=== PATIENT | male | born 1960 | race African-American/Black ===

== ENCOUNTER 2019-07-03 18:44 | Emergency (ER) | payer SELFPAY ==
[~2019-07-03] VITALS: Ht 172.7 cm; Wt 83.9 kg
--- NOTE | 2019-07-03 18:45 | NUR ---
ED Nurse Note: Patient walked into ED c/o right upper abdominal pain that has been an ongoing issue for 3 weeks now, rates his pain a 8/10 pain. patient denies any nausea, vomiting, diarrhea, states her pain as a pressure like pain. patient is alert and oriented x4, ambulatory with a steady gait, VSS
[2019-07-03 19:05] VITALS: BP 126/77
--- NOTE | 2019-07-03 19:17 | Emergency Room Report ---
History of Present Illness General Chief Complaint: Abdominal Pain Source: Patient Present Illness HPI 58 YO male presents to the ED c/o 05/27 in severity epigastric and RUQ abdominal pain. Pt. reports has been going on several times a day for almost 3 weeks now. Pt. reports eating exacerbates his symptoms. He reports he also has symptoms when on an empty stomach. he reports nausea. Denies vomiting. He reports intermittent diarrhea. He denies blood in the stool. He reports sometimes his stool is dark in color. Denies CP, SOB, Cough, Fevers or chills. Denies recent travel or ill contacts with similar symptoms. Pt. w. Hx of GERD and he does not take medications. Denies dysuria or hematuria. Pt. denies having any relieving factors. Pt. reports he has symptoms at least 3 times per day. He denies NSAID use. He reports he is an avid coffee drinker. Allergies: Coded Allergies: No Known Allergies (Unverified , 07/03/19) Patient History Past Medical History: see triage record Past Surgical History: none Pertinent Family History: none Immunizations: UTD Reviewed Nursing Documentation: PMH: Agreed; PSxH: Agreed Nursing Documentation-PMH Past Medical History: No Stated History Review of Systems All Other Systems: negative except mentioned in HPI Physical Exam Vital Signs Date Time Temp Pulse Resp B/P (MAP) Pulse Ox O2 Delivery O2 Flow Rate FiO2 07/03/19 18:59 98.6 65 18 126/77 (93) 98 Room Air Sp02 EP Interpretation: reviewed, normal General Appearance: no apparent distress, alert, GCS 15, non-toxic Head: normocephalic, atraumatic Eyes: bilateral eye normal inspection, bilateral eye PERRL ENT: hearing grossly normal, normal voice Neck: full range of motion Respiratory: chest non-tender, lungs clear, normal breath sounds, no respiratory distress, no wheezing, speaking full sentences Cardiovascular #1: regular rate, rhythm Gastrointestinal: normal bowel sounds, non tender, soft, non-distended, no guarding, tenderness - midepigastric TTP and RUQ ttp, NO Tenderness in other quadrants, no rebound. Rectal: deferred Genitourinary: normal inspection, no CVA tenderness Musculoskeletal: gait/station normal, normal range of motion, non-tender Neurologic: alert, oriented x3, responsive, motor strength/tone normal, sensory intact, speech normal, grossly normal Psychiatric: judgement/insight normal Skin: normal color, normal inspection, well hydrated Medical Decision Making PA Attestation Dr. North is my supervising Physician whom patient management has been discussed with. Diagnostic Impression: Primary Impression: Abdominal pain Qualified Codes: R10.13 - Epigastric pain Additional Impressions: History of gastroesophageal reflux (GERD) Gastritis Qualified Codes: K29.70 - Gastritis, unspecified, without bleeding ER Course 58 YO male presents to the ED c/o 05/27 in severity epigastric and RUQ abdominal pain. Pt. reports has been going on several times a day for almost 3 weeks now. Pt. reports eating exacerbates his symptoms. He reports he also has symptoms when on an empty stomach. he reports nausea. Denies vomiting. He reports intermittent diarrhea. He denies blood in the stool. He reports sometimes his stool is dark in color. Denies CP, SOB, Cough, Fevers or chills. Denies recent travel or ill contacts with similar symptoms. Pt. w. Hx of GERD and he does not take medications. Denies dysuria or hematuria. Pt. denies having any relieving factors. Pt. reports he has symptoms at least 3 times per day. He denies NSAID use. He reports he is an avid coffee drinker. Ddx considered but are not limited to Diverticulitis, acute appendicitis, diarrhea,UC, PUD, GE, pancreatitis, gallstones Vital signs: are WNL, pt. is afebrile H&PE are most consistent with gastritis secondary to uncontrolled GERD.-- Pt. NAD, non-toxic in appearance. ORDERS: CBC, CMP, lipase, UA-- All WNL no evidence of acute blood loss. ED INTERVENTIONS: -- 1000NS, --Protonix PO -Mylanta PO -Lidocaine Viscous PO Pt. reports his symptoms have improved. He states he does not have a PCP and is asking for referral information. -I do not identify an emergent condition at this time. With current presentation , pt. is stable for close outpatient follow up and conservative treatment. D/ w pt. to return promptly to ED with worsening or new symptoms.- Pt. verbalizes' understanding and agreement with proposed treatment plan.proposed treatment plan. DISCHARGE: At this time pt. is stable for d/c to home. Will provide printed patient care instructions, and any necessary prescriptions. Care plan and follow up instructions have been discussed with the patient prior to discharge. Labs Test 07/03/19 19:40 White Blood Count 4.2 K/UL (4.8-10.8) Red Blood Count 4.68 M/UL (4.70-6.10) Hemoglobin 14.6 G/DL (14.2-18.0) Hematocrit 43.0 % (42.0-52.0) Mean Corpuscular Volume 92 FL (80-99) Mean Corpuscular Hemoglobin 31.2 PG (27.0-31.0) Mean Corpuscular Hemoglobin Concent 33.9 G/DL (32.0-36.0) Red Cell Distribution Width 10.6 % (11.6-14.8) Platelet Count 194 K/UL (150-450) Mean Platelet Volume 8.1 FL (6.5-10.1) Neutrophils (%) (Auto) 37.4 % (45.0-75.0) Lymphocytes (%) (Auto) 42.9 % (20.0-45.0) Monocytes (%) (Auto) 11.4 % (1.0-10.0) Eosinophils (%) (Auto) 6.2 % (0.0-3.0) Basophils (%) (Auto) 2.1 % (0.0-2.0) Urine Color Yellow Urine Appearance Clear Urine pH 5 (4.5-8.0) Urine Specific [place]anna 1.020 (1.005-1.035) Urine Protein 1+ (NEGATIVE) Urine Glucose (UA) Negative (NEGATIVE) Urine Ketones 1+ (NEGATIVE) Urine Blood Negative (NEGATIVE) Urine Nitrite Negative (NEGATIVE) Urine Bilirubin Negative (NEGATIVE) Urine Urobilinogen Normal MG/DL (0.0-1.0) Urine Leukocyte Esterase Negative (NEGATIVE) Urine RBC 0-2 /HPF (0 - 0) Urine WBC 0-2 /HPF (0 - 0) Urine Squamous Epithelial Cells None /LPF (NONE/OCC) Urine Bacteria None /HPF (NONE) Urine Mucus Moderate /LPF (NONE/OCC) Sodium Level 141 MMOL/L (136-145) Potassium Level 3.7 MMOL/L (3.5-5.1) Chloride Level 104 MMOL/L (98-107) Carbon Dioxide Level 29 MMOL/L (21-32) Anion Gap 8 mmol/L (5-15) Blood Urea Nitrogen 13 mg/dL (7-18) Creatinine 1.4 MG/DL (0.55-1.30) Estimat Glomerular Filtration Rate 52.4 mL/min (>60) Glucose Level 89 MG/DL (74-106) Calcium Level 9.4 MG/DL (8.5-10.1) Total Bilirubin 0.4 MG/DL (0.2-1.0) Aspartate Amino Transf (AST/SGOT) 15 U/L (15-37) Alanine Aminotransferase (ALT/SGPT) 22 U/L (12-78) Alkaline Phosphatase 48 U/L (46-116) Total Protein 7.1 G/DL (6.4-8.2) Albumin 4.0 G/DL (3.4-5.0) Globulin 3.1 g/dL Albumin/Globulin Ratio 1.3 (1.0-2.7) Lipase 105 U/L (73-393) CT/MRI/US Diagnostic Results CT/MRI/US Diagnostic Results : Imaging Test Ordered: Abdominal US COmplete Impression " No acute sonographic findings in the abdomen." Per official radiology report - Please see report for specific details. Last Vital Signs Date Time Temp Pulse Resp B/P (MAP) Pulse Ox O2 Delivery O2 Flow Rate FiO2 07/03/19 18:59 98.6 65 18 126/77 (93) 98 Room Air Disposition: HOME, SELF-CARE Condition: Stable Scripts Lidocaine HCl 2% Viscous (Lidocaine HCl 2% Viscous) 100 Ml Solution 10 ML ORAL TID for pain, #120 ML Prov: Kristie Velásquez 07/03/19 Ranitidine Hcl* (ZANTAC*) 150 Mg Tablet 150 MG ORAL TWICE A DAY for 10 Days, #20 TAB Prov: Kristie Velásquez 07/03/19 Omeprazole (OMEPRAZOLE) 40 Mg Capsule.dr 40 MG ORAL DAILY for 14 Days, #14 CAP Prov: Kristie Velásquez 07/03/19 Referrals: Bernabe Virk. [facility] Patient Instructions: Abdominal Pain, Adult, Food Choices for Gastroesophageal Reflux Disease, Adult, Gastroesophageal Reflux Disease, Adult Additional Instructions: Take medications as directed. Follow up with a Primary Care Provider in 3-5 days for GI SPECIALIST REFERRAL , even if your symptoms have resolved. --Please review list of primary care clinics, if you do not already have a primary care provider Return sooner to ED if new symptoms occur, or current symptoms become worse. - Please note that this Emergency Department Report was dictated using mytraxpackaging clerk technology software, occasionally this can lead to erroneous entry secondary to interpretation by the dictation equipment. Kristie Velásquez Jul 03, 2019 19:17
[2019-07-03] MEDS ORDERED: Morphine Sulfate 4mg/ml Inj (IV USE ONLY) IVP ONE (19:45)
[2019-07-03 20:07] LABS: BASOPHILS % (AUTO) 2.1 % (0.0-2.0); EOSINOPHILS % (AUTO) 6.2 % (0.0-3.0); HEMOGLOBIN 14.6 G/DL (14.2-18.0); LYMPHOCYTES % (AUTO) 42.9 % (20.0-45.0); MEAN CORPUSCULAR VOLUME 92 FL (80-99); MONOCYTES % (AUTO) 11.4 % (1.0-10.0); NEUTROPHILS % (AUTO) 37.4 % (45.0-75.0); PLATELET COUNT 194 K/UL (150-450); RED BLOOD COUNT 4.68 M/UL (4.70-6.10); RED CELL DISTRIBUTION WIDTH 10.6 % (11.6-14.8); WHITE BLOOD COUNT 4.2 K/UL (4.8-10.8)
[2019-07-03 20:09] LABS: APPEARANCE,URINE CLEAR; BILIRUBIN, URINE NEGATIVE (NEGATIVE); GLUCOSE, URINE (UA) NEGATIVE (NEGATIVE); KETONES,URINE 1+ (NEGATIVE); LEUKOCYTE ESTERASE ,URINE NEGATIVE (NEGATIVE); NITRITE,URINE NEGATIVE (NEGATIVE); PH,URINE 5 (4.5-8.0); PROTEIN,URINE 1+ (NEGATIVE); UROBILINOGEN,URINE NORMAL MG/DL (0.0-1.0)
[2019-07-03 20:10] LABS: COLOR,URINE YELLOW
[2019-07-03 20:23] LABS: ANION GAP 8 mmol/L (5-15); BLOOD UREA NITROGEN 13 mg/dL (7-18); CALCIUM 9.4 MG/DL (8.5-10.1); CARBON DIOXIDE 29 MMOL/L (21-32); CHLORIDE 104 MMOL/L (98-107); CREATININE 1.4 MG/DL (0.55-1.30); POTASSIUM 3.7 MMOL/L (3.5-5.1); SODIUM 141 MMOL/L (136-145)
[2019-07-03 20:29] LABS: ALANINE AMINOTRANSFERASE 22 U/L (12-78); ALBUMIN/GLOBULIN RATIO 1.3 (1.0-2.7); ALKALINE PHOSPHATASE 48 U/L (46-116); ASPARTATE AMINO TRANSFERASE 15 U/L (15-37); BILIRUBIN,TOTAL 0.4 MG/DL (0.2-1.0)
[2019-07-03] MEDS ORDERED: Mylanta II UD 30ml ORAL ONE (20:45)
[2019-07-03] MEDS ORDERED: Lidocaine 2% Visc 15ml soln ORAL ONE (20:45)
--- NOTE | 2019-07-03 20:49 | Diagnostic Imaging Report ---
Indication: Abdominal pain Technique: Grayscale and duplex Doppler imaging of the abdomen performed. Comparison: None Findings: The liver is unremarkable. Doppler interrogation of the main portal vein shows patency with hepatopedal, monophasic flow. There is no biliary ductal dilatation identified with a 2 mm CBD. Gallbladder is unremarkable. There demonstrated part of the pancreas, aorta and IVC show no definite abnormalities. Both kidneys appear unremarkable. There is no hydronephrosis. IMPRESSION: No acute findings identified.
[2019-07-03] MEDS ORDERED: LIDOCAINE VISC100 ML ORAL (20:54)
[2019-07-03] MEDS ORDERED: OMEPRAZOLE40 M1 ORAL (20:54)
[2019-07-03] MEDS ORDERED: ZANTAC150 MG ORAL (20:54)
[2019-07-03 21:35] VITALS: BP 130/79
== END 2019-07-03 21:34 | disposition home or self-care (01) ==
LOC: EMR 19:21
DX: K29.70 Gastritis, unspecified, without bleeding (principal); K21.9 Gastro-esophageal reflux disease without esophagitis
CPT/HCPCS: 36415; 76700; 80053; 81003; 83690; 85025; 96361; 96374; 99284; J2270